=== PATIENT | female | born 1940 | race Hispanic/Latino ===

== ENCOUNTER 2018-03-02 00:37 | Inpatient (IN) | payer MEDICARE ==
[~2018-03-02] VITALS: Ht 152.4 cm; Wt 73.1 kg
[2018-03-02 01:06] LABS: BASOPHILS % (AUTO) 0.4 % (0.0-5.0); EOSINOPHILS % (AUTO) 0.2 % (0.0-8.0); HEMATOCRIT 41.9 % (36-48); MEAN CORPUSCULAR HEMOGLOBIN 29.7 pg (27.0-33.0); MEAN CORPUSCULAR HGB CONC 34.4 g/dL (32.0-36.0); MEAN CORPUSCULAR VOLUME 86.3 fL (79-99); MONOCYTES % (AUTO) 4.7 % (3.0-13.0); NEUTROPHILS % (AUTO) 88.7 % (40.0-77.0); NUCLEATED RED BLOOD CELLS 0.1 % (0.0-0.19); PLATELET COUNT (AUTO) 74 K/uL (130-400); RED BLOOD CELL COUNT(AUTO) 4.85 MIL/uL (4.00-5.50); RED CELL DISTRIBUTION WIDTH 15.4 % (11.0-15.5); WHITE BLOOD COUNT (AUTO) 10.5 K/uL (4.8-10.8)
[2018-03-02 01:09] LABS: APPEARANCE,URINE Clear (CLEAR); BILIRUBIN,URINE Negative (NEGATIVE); COLOR,URINE Dark Yellow (YELLOW); GLUCOSE, URINE (UA) Negative (NEGATIVE); KETONES,URINE Negative (NEGATIVE); LEUKOCYTE ESTERASE ,URINE Negative (NEGATIVE); NITRATE,URINE Negative (NEGATIVE); OCCULT BLOOD,URINE Trace (NEGATIVE); PROTEIN,URINE POS 1+ (NEGATIVE)
[2018-03-02] MEDS ORDERED: ONDANSETRON HCL 4 MG/2 ML VIAL ONE (01:09)
[2018-03-02] MEDS ORDERED: CEFTRIAXONE SODIUM 2 GM VIAL ONE (01:10)
[2018-03-02] MEDS ORDERED: SODIUM CHLORIDE 0.9% 1000ML 3,000 ML IV ONE (01:10)
[2018-03-02] MEDS ORDERED: ACETAMINOPHEN EXTRA STRENGTH 500 MG TABLET ONE (01:10)
[2018-03-02 01:15] LABS: BACTERIA,URINE None Seen /HPF (None Seen); MUCUS,URINE Few LPF (None Seen); RBC,URINE 0-1 /HPF (0-1); SQUAMOUS EPITHELIAL CELL,UR Few /HPF (0-2); WBC,URINE None Seen /HPF (0-1)
[2018-03-02 01:25] LABS: INR 0.98 (0.85-1.15); PARTIAL THROMBOPLASTIN TIME 27.1 SEC (26.3-35.5); PROTHROMBIN TIME 10.3 SEC (9.6-11.6)
[2018-03-02 01:27] LABS: CARBON DIOXIDE 24 mmol/L (21-32); CHLORIDE 91 mmol/L (101-111); CREATININE 0.9 mg/dL (0.5-1.5); GLOMERULAR FILTR. RATE CALC 64 mL/min (>60); GLUCOSE,RANDOM 121 mg/dL (70-105); POTASSIUM 3.4 mmol/L (3.5-5.1); SODIUM SERUM 124 mmol/L (136-145); UREA NITROGEN, BLOOD 17 mg/dL (7-18)
[2018-03-02 01:55] LABS: ALANINE AMINOTRANSFERASE 106 U/L (12-78); ALBUMIN 2.8 g/dL (3.5-5.0); ASPARTATE AMINOTRANSFERASE 170 U/L (10-37); BILIRUBIN,TOTAL 1.2 mg/dL (0.2-1.0); CREATINE KINASE MB 0.7 ng/mL (0.5-3.6); CREATINE KINASE, TOTAL 160 U/L (21-232); MYOGLOBIN 205 ng/mL (10-92); TOTAL PROTEIN, SERUM 7.1 g/dL (6.0-8.3); TROPONIN I < 0.04 ng/mL (0.00-0.06)
[2018-03-02] MEDS ORDERED: SODIUM CHLORIDE 0.9% 1000ML 1,000 ML IV ONE (04:22)
[2018-03-02] MEDS ORDERED: ACETAMINOPHEN 650 MG SUPPOSITORY RC PRN (04:45)
[2018-03-02] MEDS ORDERED: POTASSIUM CHLORIDE 10% ELIXIR 20 MEQ/15 ML UDCUP PO PRN (04:45)
[2018-03-02] MEDS ORDERED: LIDOCAINE HCL-MPF 1% 2ML VIAL IVP PRN (04:45)
[2018-03-02] MEDS: ZOSYN 3.375GM+NS 50ML 50 ML IV SCH ×3 (05:30→22:29)
[2018-03-02] MEDS ORDERED: PHARMACY COMMUNICATION MISC SCH (05:45)
[2018-03-02] MEDS ORDERED: ZOSYN 3.375GM+NS 50ML 50 ML IV ONE (06:10)
[2018-03-02] MEDS ORDERED: PANTOPRAZOLE 40 MG/VIAL IVP SCH (09:00)
[2018-03-02] MEDS: ENOXAPARIN SODIUM 40 MG/0.4 ML SYRINGE SQ SCH (09:00)
[2018-03-02] MEDS ORDERED: ENOXAPARIN SODIUM 40 MG/0.4 ML SYRINGE SQ ONE (09:23)
[2018-03-02] MEDS: SODIUM CHLORIDE 0.9% 1000ML 1,000 ML IV SCH ×2 (10:50→14:28)
[2018-03-02] MEDS ORDERED: ACETAMINOPHEN 325 MG TAB PO PRN (11:00)
[2018-03-02] MEDS ORDERED: ONDANSETRON HCL 4 MG/2 ML VIAL IVP PRN (11:00)
[2018-03-02 11:40] VITALS: BP 130/78
[2018-03-02] MEDS ORDERED: LACTULOSE 20 GM/30 ML UDCUP PO SCH (14:15)
[2018-03-02] MEDS ORDERED: BISACODYL 10 MG SUPP.RECT RC ONE (14:15)
[2018-03-02] MEDS ORDERED: MAGNESIUM HYDROXIDE 30 ML/UDCUP PO SCH (14:15)
[2018-03-02 15:34] VITALS: BP 163/88
[2018-03-02 19:35] VITALS: BP 108/62
[2018-03-02 23:38] VITALS: BP 126/62
[2018-03-03] VITALS (9 sets, daily range): BP systolic 87–128; BP diastolic 41–78
[2018-03-03] MEDS: SODIUM CHLORIDE 0.9% 1000ML 1,000 ML IV SCH ×3 (00:59→21:39)
[2018-03-03] MEDS: POTASSIUM CHLORIDE 20MEQ/100ML 100 ML IV PRN ×5 (02:20→18:23)
[2018-03-03] MEDS: ZOSYN 3.375GM+NS 50ML 50 ML IV SCH ×3 (05:40→21:34)
[2018-03-03] MEDS ORDERED: SODIUM CHLORIDE 0.9% 500ML 500 ML IV SCH (08:00)
[2018-03-03 08:06] LABS: HEMATOCRIT 34.4 % (36-48); MEAN CORPUSCULAR HEMOGLOBIN 30.2 pg (27.0-33.0); MEAN CORPUSCULAR HGB CONC 34.7 g/dL (32.0-36.0); PLATELET COUNT (AUTO) 49 K/uL (130-400); RED BLOOD CELL COUNT(AUTO) 3.96 MIL/uL (4.00-5.50); RED CELL DISTRIBUTION WIDTH 15.3 % (11.0-15.5); WHITE BLOOD COUNT (AUTO) 9.9 K/uL (4.8-10.8)
[2018-03-03 08:14] LABS: CREATININE 1.3 mg/dL (0.5-1.5); MAGNESIUM 1.9 mg/dL (1.80-2.40)
[2018-03-03 08:23] LABS: POTASSIUM 2.5 mmol/L (3.5-5.1)
[2018-03-03] MEDS: ENOXAPARIN SODIUM 40 MG/0.4 ML SYRINGE SQ SCH (08:32)
[2018-03-03] MEDS: FAMOTIDINE/PF 20 MG/2 ML VIAL IV SCH (08:32)
[2018-03-03 08:46] LABS: PLATELET MORPHOLOGY COMMENT MARKED DECREASED
[2018-03-03] MEDS ORDERED: FLUT1AER IH (19:41)
[2018-03-03] MEDS ORDERED: RANI150T7 PO (19:41)
[2018-03-03] MEDS ORDERED: SERT100T12 PO (19:41)
[2018-03-03] MEDS ORDERED: AMIT25TA9 PO (19:41)
[2018-03-03] MEDS ORDERED: IBUP-2077 PO (19:41)
[2018-03-04 03:56] VITALS: BP 121/66
[2018-03-04] MEDS: ZOSYN 3.375GM+NS 50ML 50 ML IV SCH (05:15)
[2018-03-04 05:54] LABS: BASOPHILS % (AUTO) 0.4 % (0.0-5.0); EOSINOPHILS % (AUTO) 0.4 % (0.0-8.0); HEMATOCRIT 34.1 % (36-48); LYMPHOCYTES % (AUTO) 8.3 % (21.0-51.0); MEAN CORPUSCULAR HEMOGLOBIN 29.6 pg (27.0-33.0); MEAN CORPUSCULAR HGB CONC 34.1 g/dL (32.0-36.0); MEAN CORPUSCULAR VOLUME 86.9 fL (79-99); MONOCYTES % (AUTO) 5.3 % (3.0-13.0); NEUTROPHILS % (AUTO) 85.6 % (40.0-77.0); PLATELET COUNT (AUTO) 56 K/uL (130-400); RED BLOOD CELL COUNT(AUTO) 3.92 MIL/uL (4.00-5.50); RED CELL DISTRIBUTION WIDTH 15.3 % (11.0-15.5); WHITE BLOOD COUNT (AUTO) 10.8 K/uL (4.8-10.8)
[2018-03-04 06:02] LABS: CREATININE 1.1 mg/dL (0.5-1.5); POTASSIUM 3.1 mmol/L (3.5-5.1)
[2018-03-04] MEDS: SODIUM CHLORIDE 0.9% 1000ML 1,000 ML IV SCH ×2 (06:27→16:45)
[2018-03-04 08:00] VITALS: BP 121/83
[2018-03-04] MEDS: POTASSIUM CHLORIDE 20 MEQ ERTAB PO PRN ×4 (08:01→21:09)
[2018-03-04] MEDS: ENOXAPARIN SODIUM 40 MG/0.4 ML SYRINGE SQ SCH (09:00)
[2018-03-04] MEDS: LEVOFLOXACIN 500 MG TABLET PO SCH (09:32)
[2018-03-04] MEDS: FAMOTIDINE/PF 20 MG/2 ML VIAL IV SCH (09:32)
[2018-03-04 11:00] VITALS: BP 100/62
[2018-03-04 16:00] VITALS: BP 120/58
[2018-03-04 19:05] VITALS: BP 126/61
[2018-03-05 00:05] VITALS: BP 127/79
[2018-03-05] MEDS: SODIUM CHLORIDE 0.9% 1000ML 1,000 ML IV SCH (02:45)
[2018-03-05 04:00] VITALS: BP 135/75
[2018-03-05 05:45] LABS: BASOPHILS % (AUTO) 0.3 % (0.0-5.0); EOSINOPHILS % (AUTO) 0.6 % (0.0-8.0); HEMATOCRIT 35.9 % (36-48); LYMPHOCYTES % (AUTO) 13.9 % (21.0-51.0); MEAN CORPUSCULAR HGB CONC 34.4 g/dL (32.0-36.0); MEAN CORPUSCULAR VOLUME 87.1 fL (79-99); MONOCYTES % (AUTO) 6.7 % (3.0-13.0); NEUTROPHILS % (AUTO) 78.5 % (40.0-77.0); NUCLEATED RED BLOOD CELLS 0.1 % (0.0-0.19); PLATELET COUNT (AUTO) 83 K/uL (130-400); RED BLOOD CELL COUNT(AUTO) 4.13 MIL/uL (4.00-5.50); WHITE BLOOD COUNT (AUTO) 11.7 K/uL (4.8-10.8)
[2018-03-05 05:55] LABS: CREATININE 0.9 mg/dL (0.5-1.5); POTASSIUM 4.2 mmol/L (3.5-5.1)
[2018-03-05 08:09] VITALS: BP 157/96
[2018-03-05] MEDS: ENOXAPARIN SODIUM 40 MG/0.4 ML SYRINGE SQ SCH (09:00)
[2018-03-05] MEDS: LEVOFLOXACIN 500 MG TABLET PO SCH (09:19)
[2018-03-05] MEDS: FAMOTIDINE/PF 20 MG/2 ML VIAL IV SCH (09:19)
[2018-03-05 11:47] VITALS: BP 157/80
== END 2018-03-05 15:55 | disposition home or self-care (01) | DRG 872 ==
LOC: EDH 00:37 → EDHIP 03:40 → 3BH 10:17
PROVIDERS: ADMIT Internal Medicine Nephrology; ATTEND Internal Medicine Nephrology
DX: A41.9 Sepsis, unspecified organism (principal); N17.9 Acute kidney failure, unspecified; D69.6 Thrombocytopenia, unspecified; E86.0 Dehydration; E87.1 Hypo-osmolality and hyponatremia; K57.32 Diverticulitis of large intestine without perforation or abscess without bleeding; E44.1 Mild protein-calorie malnutrition; A09 Infectious gastroenteritis and colitis, unspecified; I12.9 Hypertensive chronic kidney disease with stage 1 through stage 4 chronic kidney disease, or unspecified chronic kidney disease; E87.6 Hypokalemia; N18.9 Chronic kidney disease, unspecified; Z90.710 Acquired absence of both cervix and uterus
CPT/HCPCS: 36415; 71045; 74176; 80048; 80053; 81001; 82270; 82550; 82553; 83605; 83735; 83874; 84132; 84295; 84484; 85025; 85027; 85610; 85730; 86757; 87040; 87088; 87507; 87804; 93005; C9113; J0696; J1650; J2405; J2543; J3480; J3490; J7030; J7040